=== PATIENT | male | born 1990 | race Caucasian/White ===

== ENCOUNTER 2022-01-08 00:44 | Emergency (ER) | payer OTHER ==
--- NOTE | 2022-01-08 01:19 | NUR ---
CALLED FOR PT NO ANSWER AT THIS TIME
--- NOTE | 2022-01-08 01:48 | NUR ---
PATIENT LEFT WITHOUT BEING SEEN BY DR. VALERIO. NO FURTHER CARE PROVIDED FOR PATIENT.
--- NOTE | 2022-01-08 01:48 | NUR ---
called for pt no answer
== END 2022-01-08 01:49 | disposition left against medical advice (07) ==
LOC: MED 00:44
DX: K08.89 Other specified disorders of teeth and supporting structures (principal); Z53.21 Procedure and treatment not carried out due to patient leaving prior to being seen by health care provider